=== PATIENT | male | born 1970 | race Caucasian/White ===

== ENCOUNTER 2021-06-03 08:07 | Inpatient (IN) | payer SELFPAY ==
[2021-06-03 08:45] LABS: Absolute Lymphocytes (CBC) 1.4 K/uL (0.7-4.9); Hematocrit 45.9 % (39.6-49.0); Lymphocytes % 9.7 % (15.3-44.8); MPV 7.6 fL (7.6-11.3)
[2021-06-03] MEDS ORDERED: MORPHINE 4 MG/ML SYR ONE ×3 (08:48→21:08)
[2021-06-03] MEDS ORDERED: ONDANSETRON 4 MG/2 ML VIAL ONE (08:48)
[2021-06-03 09:02] LABS: Albumin 3.6 g/dL (3.4-5.0); Bilirubin Direct 0.3 mg/dL (0-0.2); Potassium 3.6 mmol/L (3.5-5.1); Protein, Total 8.7 g/dL (6.4-8.2)
--- NOTE | 2021-06-03 09:34 | RAD REPORT ---
EXAM DESCRIPTION: CTAbdomen Pelvis W Contrast - 06/03/2021 9:26 am CLINICAL HISTORY: ABD PAIN COMPARISON: No comparisons TECHNIQUE: CT of the abdomen and pelvis was performed. All CT scans are performed using dose optimization technique as appropriate and may include automated exposure control or mA/KV adjustment according to patient size. FINDINGS: Lower chest: No acute abnormality. Liver: Benign-appearing low-density lesion along the inferior aspect of right hepatic lobe. Biliary: No biliary ductal dilatation. Stomach: No significant focal abnormality. Duodenum: No significant focal abnormality. Pancreas: No significant abnormality. Spleen: No significant abnormality. Adrenal: No suspicious lesions. Kidney/ureter: No hydronephrosis. No renal calculi. Retroperitoneum: No retroperitoneal adenopathy. Vascular: No aneurysm. Bowel: Sigmoid diverticulitis. A contained perforation is present. This measures approximately 2.5 cm . It is nearly exclusively air. No significant fluid component is identified. Normal appendix. No bow el obstruction. Peritoneum: No ascites or free air. Bladder: Grossly unremarkable. Reproductive: No adnexal masses. Bones: No acute fracture. Other: n/a IMPRESSION: Sigmoid diverticulitis with contained gas containing perforation. No significant fluid c omponent of the collection is identified and therefore it is non drainable at this time.
[2021-06-03] MEDS ORDERED: NA CHLORIDE 0.9% 100 ML IV ONE (10:21)
[2021-06-03] MEDS ORDERED: PIPERACIL/TAZO 3.375 GM VIAL IV ONE (10:22)
--- NOTE | 2021-06-03 10:26 | EDPHYS ---
Physician Documentation [facility] Name: Chase Mora Age: 51 yrs Sex: Male : 1970 Arrival Date: 06/03/2021 Time: 08:08 Bed 25 Private MD: ED Physician Osmany Sofia HPI: 06/03 08:18 This 51 yrs old Male presents to ER via Ambulatory with complaints of Abdominal Pain. [facility] 08:18 The patient presents with abdominal pain in the lower abdomen. Onset: The [facility] symptoms/episode began/occurred gradually. The symptoms do not radiate. Associated signs and symptoms: Pertinent negatives:. This is a 51 year old male with no chronic medical conditions that presents to the ED with complaints of left lower abdominal pain beginning 3 days ago with multiple episodes of diarrhea. Denies vomiting. Denies fever but states having some night sweats. . Historical: - Allergies: 08:39 Sulfa (Sulfonamide Antibiotics); eo2 - PMHx: 08:41 None; eo2 - PSHx: 08:41 hernia repair; eo2 - Immunization history:: Client reports having NOT received the Covid vaccine. - Social history:: Smoking status: Patient denies any tobacco usage or history of. Patient uses alcohol, occasionally. street drugs, marijuana, occasionally. ROS: 08:18 Constitutional: Positive for body aches, chills. jmm 08:18 Respiratory: Negative for cough. 08:18 Abdomen/GI: Positive for abdominal pain, diarrhea. 08:18 All other systems are negative. Exam: 08:18 Constitutional: This is a well developed, well nourished patient who is awake, alert, jmm and in no acute distress. Head/Face: atraumatic. Eyes: EOMI, no conjunctival erythema appreciated ENT: Moist Mucus Membranes Neck: Trachea midline, Supple Chest/axilla: Normal chest wall appearance and motion. Cardiovascular: Regular rate and rhythm. No edema appreciated Respiratory: Normal respirations, no respiratory distress appreciated 08:18 Back: Normal ROM Skin: General appearance color normal MS/ Extremity: Moves all extremities, no obvious deformities appreciated, no edema noted to the lower extremities Neuro: Awake and alert Psych: Behavior is normal, Mood is normal, Patient is cooperative and pleasant 08:18 Abdomen/GI: Inspection: abdomen appears normal, Bowel sounds: normal, Palpation: soft, mild abdominal tenderness, in the left lower quadrant. Vital Signs: 08:13 BP 143 / 86; Pulse 82; Resp 17; Temp 97.6; Pulse Ox 100% ; Weight 88.45 kg; Height 5 6 ft. 6 in. (167.64 cm); Pain 4/10; 08:41 BP 159 / 86; Pulse 85; Resp 15; Pulse Ox 97% on R/A; Pain 4/10; eo2 09:50 BP 135 / 81; Pulse 78; Resp 17; Pulse Ox 98% ; Pain 3/10; eo2 10:27 BP 125 / 82; Pulse 76; Resp 16; Pulse Ox 96% ; Pain 6/10; eo2 11:00 BP 138 / 86; Pulse 83; Resp 15; Pulse Ox 98% ; Pain 4/10; eo2 12:00 BP 136 / 81; Pulse 75; Resp 15; Pulse Ox 99% ; eo2 14:45 BP 135 / 75; Pulse 80; Resp 17; Temp 100.4; Pulse Ox 99% ; Pain 6/10; eo2 08:13 Body Mass Index 31.47 (88.45 kg, 167.64 cm) [facility] 14:45 Dr. Gonzales called to be made aware, VM left eo2 MDM: 08:18 Patient medically screened. [facility] 10:08 Data reviewed: vital signs, nurses notes. Counseling: I had a detailed discussion with [facility] the patient and/or guardian regarding:. Counseling: I had a detailed discussion with the patient and/or guardian regarding: the historical points, exam findings, and any diagnostic results supporting the discharge/admit diagnosis, lab results, radiology results. 10:24 ED course: I discussed the patient with Dr. Gonzales whom accepted the patient to his [facility] service. I discussed the patient with Dr. Balderas whom will consult on admission. . 06/03 08:36 Order name: Basic Metabolic Panel; Complete Time: 09:05 [facility] 06/03 08:36 Order name: CBC with Diff; Complete Time: 08:58 [facility] 06/03 08:36 Order name: Hepatic Function; Complete Time: 09:05 [facility] 06/03 08:36 Order name: Lipase; Complete Time: 09:05 [facility] 06/03 10:30 Order name: SARS-COV-2 RT PCR (Document "Date of Onset" if Symptomatic); Complete Time: iw 12:07 06/03 13:37 Order name: CBC with Automated Diff EDMS 06/03 08:42 Order name: CT Abd/Pelvis - IV Contrast Only; Complete Time: 09:35 [facility] 06/03 13:37 Order name: CBC with Automated Diff EDMS 06/03 13:37 Order name: Comprehensive Metabolic Panel EDMS 06/03 13:37 Order name: Comprehensive Metabolic Panel EDMS 06/03 13:37 Order name: Comprehensive Metabolic Panel EDMS 06/03 13:37 Order name: Comprehensive Metabolic Panel MS 06/03 08:36 Order name: IV Saline Lock; Complete Time: 08:37 [facility] 06/03 08:36 Order name: Labs collected and sent; Complete Time: 08:37 [facility] 06/03 13:37 Order name: NPO EDMS Administered Medications: 08:50 Drug: morphine 4 mg Route: IVP; Site: left antecubital; eo2 09:50 Follow up: Response: Pain is decreased eo2 08:50 Drug: Zofran (Ondansetron) 4 mg Route: IVP; Site: left antecubital; eo2 09:50 Follow up: Response: No adverse reaction eo2 10:27 Drug: morphine 4 mg Route: IVP; Site: left antecubital; eo2 11:27 Follow up: Response: No adverse reaction; Pain is decreased eo2 10:30 Drug: Zosyn (piperacillin-tazobactam) 3.375 grams Route: IVPB; Infused Over: 60 mins; eo2 Site: left antecubital; 11:30 Follow up: Response: No adverse reaction; IV Status: Completed infusion; IV Intake: eo2 100ml Disposition Summary: 06/03/21 10:26 Hospitalization Ordered Hospitalization Status: Inpatient Admission jose Provider: Lupis Gonzales Location: Telemetry/MedSurg (Inpatient) jmm Condition: Stable jmm Problem: new jmm Symptoms: have improved jmm Bed/Room Type: Standard [facility] Room Assignment: 427(06/03/21 14:18) bd Diagnosis - Acute Sigmoid Diverticulitis with perforation jmm Forms: - Medication Reconciliation Form jm - SBAR form [facility] Addendum: 06/06/2021 09:18 Co-signature as Attending Physician, Osmany Sofia MD I agree with the assessment and c carroll plan of care. Signatures: Dispatcher [employer] EDMandie Jensen Corey, MD MD cha Mickail, Joel, PA PA jmm Owoade, Eunice, ART RN eo2 Corrections: (The following items were deleted from the chart) 06/03 14:18 10:26 roxy rivas
--- NOTE | 2021-06-03 10:26 | ER ---
Nurse's Notes [facility] Name: Chase Mora Age: 51 yrs Sex: Male : 1970 Arrival Date: 06/03/2021 Time: 08:08 Bed 25 Private MD: Diagnosis: Acute Sigmoid Diverticulitis with perforation Presentation: 06/03 08:13 Chief complaint: Patient states: Left side abd pain x 3 days, minimal BM over the last jh6 3 days. Coronavirus screen: Client denies travel out of the [place] in the last 14 days. Ebola Screen: Patient denies exposure to infectious person. Patient denies travel to an Ebola-affected area in the 21 days before illness onset. Initial Sepsis Screen: Does the patient meet any 2 criteria? No. Patient's initial sepsis screen is negative. Does the patient have a suspected source of infection? No. Patient's initial sepsis screen is negative. Risk Assessment: Do you want to hurt yourself or someone else? Patient reports no desire to harm self or others. Onset of symptoms was May 31, 2021. 08:13 Method Of Arrival: Ambulatory [facility] 08:13 Acuity: OMID 3 6 Triage Assessment: 08:16 General: Appears in no apparent distress. Behavior is calm, cooperative. Pain: 6 Complains of pain in left upper quadrant and left lower quadrant. GI: Reports constipation, cramping. Historical: - Allergies: 08:39 Sulfa (Sulfonamide Antibiotics); eo2 - PMHx: 08:41 None; eo2 - PSHx: 08:41 hernia repair; eo2 - Immunization history:: Client reports having NOT received the Covid vaccine. - Social history:: Smoking status: Patient denies any tobacco usage or history of. Patient uses alcohol, occasionally. street drugs, marijuana, occasionally. Screenin:41 Abuse screen: Denies threats or abuse. Denies injuries from another. Nutritional eo2 screening: No deficits noted. Tuberculosis screening: No symptoms or risk factors identified. Fall Risk None identified. Assessment: 08:37 General: Appears in no apparent distress. comfortable, Behavior is calm. Pain: eo2 Complains of pain in abdomen and left lower quadrant and left upper quadrant. Neuro: Level of Consciousness is awake, alert, obeys commands, Oriented to person, place, time, situation, Denies dizziness, headache. Cardiovascular: Denies chest pain, shortness of breath. Respiratory: Airway is patent Trachea midline Respiratory effort is even, unlabored, Respiratory pattern is regular, symmetrical, Breath sounds are clear bilaterally. Denies shortness of breath labored breathing. GI: Bowel sounds present X 4 quads. Abdomen is tender to palpation in left lower quadrant and left upper quadrant. GI: Reports abd pain onset 3 days, associated with constipation/diarrhea, denies N/V, hx of hernia sx. : Denies burning with urination, urinary frequency. Vital Signs: 08:13 BP 143 / 86; Pulse 82; Resp 17; Temp 97.6; Pulse Ox 100% ; Weight 88.45 kg; Height 5 6 ft. 6 in. (167.64 cm); Pain 4/10; 08:41 BP 159 / 86; Pulse 85; Resp 15; Pulse Ox 97% on R/A; Pain 4/10; eo2 09:50 BP 135 / 81; Pulse 78; Resp 17; Pulse Ox 98% ; Pain 3/10; eo2 10:27 BP 125 / 82; Pulse 76; Resp 16; Pulse Ox 96% ; Pain 6/10; eo2 11:00 BP 138 / 86; Pulse 83; Resp 15; Pulse Ox 98% ; Pain 4/10; eo2 12:00 BP 136 / 81; Pulse 75; Resp 15; Pulse Ox 99% ; eo2 14:45 BP 135 / 75; Pulse 80; Resp 17; Temp 100.4; Pulse Ox 99% ; Pain 6/10; eo2 08:13 Body Mass Index 31.47 (88.45 kg, 167.64 cm) [facility] 14:45 Dr. Gonzales called to be made aware, VM left eo2 ED Course: 08:08 Patient arrived in ED. am2 08:11 Rasta Juárez PA is PHCP. [facility] 08:11 Osmany Sofia MD is Attending Physician. [facility] 08:16 Triage completed. jh6 08:30 Carolina Ocampo, ART is Primary Nurse. eo2 08:36 Inserted saline lock: 20 gauge in left antecubital area, using aseptic technique. Blood eo2 collected. 08:41 No provider procedures requiring assistance completed. eo2 08:41 Patient has correct armband on for positive identification. Pulse ox on. NIBP on. Door eo2 closed. Noise minimized. Warm blanket given. 08:43 Arm band placed on. eo2 09:26 CT Abd/Pelvis - IV Contrast Only In Process Unspecified. EDMS 10:25 Lupis Gonzales MD is Hospitalizing Provider. [facility] 15:02 Patient admitted, IV remains in place. eo2 15:02 Report given to Mónica CORDOVA. eo2 Administered Medications: 08:50 Drug: morphine 4 mg Route: IVP; Site: left antecubital; eo2 09:50 Follow up: Response: Pain is decreased eo2 08:50 Drug: Zofran (Ondansetron) 4 mg Route: IVP; Site: left antecubital; eo2 09:50 Follow up: Response: No adverse reaction eo2 10:27 Drug: morphine 4 mg Route: IVP; Site: left antecubital; eo2 11:27 Follow up: Response: No adverse reaction; Pain is decreased eo2 10:30 Drug: Zosyn (piperacillin-tazobactam) 3.375 grams Route: IVPB; Infused Over: 60 mins; eo2 Site: left antecubital; 11:30 Follow up: Response: No adverse reaction; IV Status: Completed infusion; IV Intake: eo2 100ml Intake: 11:30 IV: 100ml; Total: 100ml. eo2 Outcome: 10:26 Decision to Hospitalize by Provider. [facility] 15:02 Admitted to Med/surg accompanied by tech, via wheelchair. eo2 15:02 Condition: stable 15:02 Instructed on the need for admit. 15:16 Patient left the ED. eo2 Signatures: Dispatcher [employer] EDMS Rasta Juárez PA PA Lety Lora am2 Alejandra Carreon RN RN jh6 Carolina Ocampo RN RN eo2 Corrections: (The following items were deleted from the chart) 08:54 08:41 BP 159 / 86; Pulse 85bpm; Resp 15bpm; Pulse Ox 97% RA; eo2 eo2 12:15 11:00 BP 138 / 86; Pulse 83bpm; Resp 15bpm; Pulse Ox 98%; eo2 eo2
[2021-06-03] MEDS ORDERED: MORPHINE 2 MG/ML SYR IV PRN (13:34)
[2021-06-03] MEDS ORDERED: ALBUTEROL 2.5 MG/3 ML NEB SOL NEB PRN (13:34)
[2021-06-03] MEDS ORDERED: ONDANSETRON 4 MG/2 ML VIAL IV PRN (13:34)
--- NOTE | 2021-06-03 13:34 | P.HP ---
Certification for Inpatient With expected LOS: >2 Midnights Patient will require the following post-hospital care: None Practitioner: I am a practitioner with admitting privileges, knowledge of patient current condition, hospital course, and medical plan of care. Services: Services provided to patient in accordance with Admission requirements found in Title 42 Section 412.3 of the Code of Federal Regulations Patient History Date of Service: 06/03/21 Reason for admission: Abdominal pain History of Present Illness: 51-year-old male with no past medical history presented because of abdominal pain, lower abdomen more in the suprapubic area radiating to both flanks, since the last 3 days, intermittent with more colicky since the last 2 days. He denies any associated vomiting but admits to some nausea. He denies any fever or chills. He denies any associated diarrhea or constipation. He states his last bowel movement was 2 days ago. On arrival in the ED he had a CT of the abdomen with finding-IMPRESSION: Sigmoid diverticulitis with contained gas containing perforation. No significant fluid component of the collection is identified and therefore it is non drainable at this time. He has been admitted for perforated sigmoid diverticulitis. He states he had a colonoscopy about 10 years ago but is not sure for what reason. He denies any family history of colon cancer. - Past Medical/Surgical History Has patient received pneumonia vaccine in the past: No Diabetic: No Past Medical History: Patient denies medical history Past Surgical History: Patient denies surgical history - Social History Smoking Status: Never smoker Smoking therapy provided: No Patient receptive to therapy: No Alcohol use: No CD- Drugs: No Caffeine use: No Place of Residence: Home Review of Systems 10-point ROS is otherwise unremarkable Physical Examination - Physical Exam General: Alert, In no apparent distress, Oriented x3 HEENT: Atraumatic, Normocephalic, PERRLA Neck: Supple, 2+ carotid pulse no bruit, JVD not distended Respiratory: Clear to auscultation bilaterally, Normal air movement Cardiovascular: Normal pulses, Regular rate/rhythm, Normal S1 S2 Gastrointestinal: Normal bowel sounds, Soft and benign, No ascites, No masses, Tenderness (lower abdomen) Musculoskeletal: No clubbing, No swelling Integumentary: No rashes, No breakdown, No significant lesion Neurological: Normal speech, Normal strength at 5/5 x4 extr, Normal tone External genitalia: No edema, No lesions - Studies Laboratory Data (last 24 hrs) 06/03/21 08:35: WBC 14.30 H, Hgb 15.8, Hct 45.9, Plt Count 340 06/03/21 08:35: Sodium 136, Potassium 3.6, BUN 7, Creatinine 1.01, Glucose 114 H, Total Bilirubin 1.0, AST 26, ALT 59, Alkaline Phosphatase 63, Lipase 58 L Assessment and Plan Discharge Plan: Home Plan to discharge in: Greater than 2 days - Advance Directives Does patient have a Living Will: No Does patient have a Durable POA for Healthcare: No - Code Status/Comfort Care Code Status Assessed: Yes Code Status: Full Code Physician Review: Patient Assessed, Agree with Above Assessment and Plan Physician Review Additional Text: Impression Sigmoid diverticulitis Presumed history of diverticulosis Plan Since contained air-containing perforation, will manage conservatively General surgery evaluation to help us out with patient Start empirical antibiotics with Zosyn and Flagyl Obtain blood culture x2 Start gentle IV fluid Placed on n.p.o. status Pain medicine with antiemetics as needed Subcutaneous heparin for DVT prophylaxis Follow clinical symptoms as well as abdominal pain daily Critical Care: Yes Time Spent Managing Pts Care (In Minutes): 65
[2021-06-03] MEDS ORDERED: HYDRALAZINE HCL 20 MG/ML VIAL IV PRN (13:35)
[2021-06-03] MEDS ORDERED: MORPHINE 2 MG/ML SYR ONE (14:37)
[2021-06-03] MEDS ORDERED: D5 0.9 NS 1,000 ML IV ONE (14:38)
[2021-06-03] MEDS: D5 0.9 NS 1,000 ML IV SCH (14:47)
[2021-06-03] MEDS: ACETAMINOPHEN 500 MG TAB PO PRN (16:21)
[2021-06-03] MEDS: METRONIDAZOLE 500mg IVPB 500 MG/100 ML BAG IV SCH (16:22)
[2021-06-03] MEDS: PIPER TAZO 3.375 GM in NA CHLORIDE 0.9% 100 ML IV SCH (16:24)
[2021-06-03] MEDS: HEPARIN 5000 UNIT/ML 1 ML VIAL SQ SCH (16:28)
--- NOTE | 2021-06-03 22:26 | CON ---
Date of Consultation: 06/03/2021 Reason For Consultation: Abdominal pain. History Of Present Illness: The patient is a 51-year-old gentleman who comes to emergency room with 3-day history of left middle and left lower quadrant abdominal pain. He denies any nausea or vomitin g. He does not have any diarrhea. He does have constipation. No bright red blood per rectum. No p revious history of diverticulitis. He did have a colonoscopy approximately 10 years ago, which was n egative and family history is negative for any colorectal malignancy. Review of Systems: Otherwise unremarkable. Past Medical History: Negative. Past Surgical History: Significant for a left inguinal hernia repair. Allergies: INCLUDE BACTRIM AND SULFA. Social History: The patient does not smoke. Drinks occasionally. Family History: Noncontributory. Physical Examination: Vital Signs: Stable. His temperature is 100.4. General: He is awake, alert, and oriented x3. Head And Neck: Cranial nerves 2 through 12 are grossly within normal limits. No neck masses. No JV D. Throat clear. Neck: Supple. Chest: Clear. Heart: S1, S2. Abdomen: Soft, nondistended. Hypoactive bowel sounds. Left lower quadrant tenderness with rebound. No rigidity or guarding. Extremities: Adequately perfused. Nontender. Neuro: Nonfocal. Laboratory Data: White count is 14.3 with a left shift. Chemistry reviewed and essentially unremark able. CT of the abdomen and pelvis shows sigmoid diverticulitis containing perforation. No signific ant fluid component of the collection. No free air. Assessment: Acute sigmoid diverticulitis with microperforation. Recommendations: N.p.o., IV fluids, IV antibiotics. Should he improve medically then he can be adva nced to oral antibiotics and discharged home. He needs to follow up with the GI service in 4-6 weeks for colonoscopy following which the patient may benefit from elective sigmoid resection. Plan of ca re discussed in detail with the patient. We will follow the patient while in the hospital. Should h e worsen, obviously he would need surgical intervention sooner. /MODL Voice ID: [id number] Report ID: [id number]
[2021-06-04] MEDS ORDERED: MORPHINE 4 MG/ML SYR ONE ×2 (01:03→06:09)
[2021-06-04] MEDS: HEPARIN 5000 UNIT/ML 1 ML VIAL SQ SCH ×3 (01:07→17:50)
[2021-06-04] MEDS: METRONIDAZOLE 500mg IVPB 500 MG/100 ML BAG IV SCH ×3 (01:07→16:57)
[2021-06-04] MEDS: PIPER TAZO 3.375 GM in NA CHLORIDE 0.9% 100 ML IV SCH ×2 (01:15→07:36)
[2021-06-04 04:00] LABS: Absolute Lymphocytes (CBC) 1.6 K/uL (0.7-4.9); Hematocrit 42.5 % (39.6-49.0); Lymphocytes % 12.7 % (15.3-44.8); MPV 8.1 fL (7.6-11.3); RBC Red Blood Cell Count 4.67 M/uL (4.33-5.43)
[2021-06-04 04:25] LABS: Bilirubin Total 0.7 mg/dL (0.2-1.0); Potassium 3.7 mmol/L (3.5-5.1); Protein, Total 7.5 g/dL (6.4-8.2)
[2021-06-04] MEDS: MORPHINE 4 MG/ML SYR IV PRN ×3 (12:35→21:33)
[2021-06-04] MEDS: D5 0.9 NS 1,000 ML IV SCH ×3 (12:35→20:00)
--- NOTE | 2021-06-04 13:47 | P.PN ---
Subjective Date of Service: 06/04/21 Chief Complaint: Abdominal pain Subjective: No new changes (States abdominal pain slightly better Able to tolerate small sips of water today Worried about constipation) Physical Examination - Vital Signs Temperature: 99.0 F Blood Pressure: 135/69 Pulse: 77 Respirations: 16 Pulse Ox (%): 97 - Physical Exam General: Alert, In no apparent distress, Oriented x3 HEENT: Atraumatic, Normocephalic, PERRLA Neck: Supple, 2+ carotid pulse no bruit, JVD not distended Respiratory: Clear to auscultation bilaterally, Normal air movement Cardiovascular: No edema, Normal pulses, Regular rate/rhythm, Normal S1 S2 Gastrointestinal: Normal bowel sounds, Soft and benign, Non-distended, No rebound, Tenderness (over lower abdomen) Musculoskeletal: No clubbing, No swelling Integumentary: No rashes, No breakdown, No significant lesion Neurological: Normal speech, Normal strength at 5/5 x4 extr, Sensation intact, Cranial nerves 3-12 intact Assessment And Plan Physician Review: Patient Assessed, Agree with Above Assessment and Plan Physician Review Additional Text: Impression Perforated sigmoid diverticulitis Presumed history of diverticulosis Plan Slightly improving, white cell count trending down marginally Continue IV antibioticsswitch Zosyn to Levaquin, continue IV Flagyl General surgeryDr. Balderas discussed with, plan for clear liquid diet today and advance as tolerated We will add MiraLAX for bowel regimen Follow pending blood culture continue Pain medicine with antiemetics as needed Subcutaneous heparin for DVT prophylaxis Dispositionpossible home in 1 to 2 days
[2021-06-04] MEDS ORDERED: POLYETHYL GLY 3350 17 GM/DOSE PO PRN (13:48)
[2021-06-04] MEDS: Levofloxacin 750mg IV 750 MG/150 ML BAG IV SCH (14:50)
[2021-06-04] MEDS: ACETAMINOPHEN 500 MG TAB PO PRN (17:03)
--- NOTE | 2021-06-04 19:22 | PN ---
Date of Progress Note: 06/04/2021 Subjective: Patient is awake, alert, complaining of little less pain. No nausea or vomiting. He carroll s had bowel movement. Passing gas. His bowels are stable. Objective: Vital Signs: His temperature is 99.0, his white count is 12.9, which is improved and his left shift has normalized. Abdomen: Soft, forming machine tender, with minimal rebound. No rigidity or guarding. Assessment: Acute sigmoid diverticulitis. Recommendations: Continue IV antibiotics. We will begin him on clear liquids and continue to monito r his CBC and serial abdominal exam. No need for any surgical intervention at this time. Should the patient improve then he will need to be on oral antibiotics for a couple of weeks. Cipro and Flagyl should suffice, oral Levaquin and Flagyl, and the GI followup in 4 to 6 weeks for a colonoscopy and possible segmental colectomy based on the findings. Plan of care discussed with the primary physicia n, as well as, the patient. /MODL Voice ID: [id number] Report ID: [id number]
[2021-06-05] MEDS: MORPHINE 4 MG/ML SYR IV PRN ×3 (01:20→09:42)
[2021-06-05] MEDS: METRONIDAZOLE 500mg IVPB 500 MG/100 ML BAG IV SCH ×3 (01:20→16:48)
[2021-06-05] MEDS: HEPARIN 5000 UNIT/ML 1 ML VIAL SQ SCH ×3 (01:20→16:49)
[2021-06-05 03:54] LABS: Absolute Lymphocytes (CBC) 1.5 K/uL (0.7-4.9); Hematocrit 39.4 % (39.6-49.0); MPV 7.9 fL (7.6-11.3); RBC Red Blood Cell Count 4.46 M/uL (4.33-5.43)
[2021-06-05 04:22] LABS: ALT/SGPT 32 U/L (12-78); AST/SGOT 11 U/L (15-37); Albumin 2.7 g/dL (3.4-5.0); Alkaline Phosphatase 52 U/L (45-117); BUN Blood Urea Nitrogen 6 mg/dL (7-18); Bicarbonate 25 mmol/L (21-32); Bilirubin Total 0.5 mg/dL (0.2-1.0); Glucose Level 123 mg/dL (74-106); Potassium 3.4 mmol/L (3.5-5.1); Protein, Total 7.1 g/dL (6.4-8.2); Sodium Level 137 mmol/L (136-145)
[2021-06-05] MEDS: D5 0.9 NS 1,000 ML IV SCH ×2 (09:06→16:45)
--- NOTE | 2021-06-05 11:08 | PN ---
Date of Progress Note: 06/05/2021 Subjective: The patient is awake, alert. Feels a little better. Vitals are stable, afebrile. Whit e count is still slightly elevated. Objective: On physical exam, there is still tenderness in the left lower quadrant with minimal rebou nd. No rigidity or guarding. Assessment: Acute sigmoid diverticulitis. Recommendations: The patient can be slowly advanced to full liquids later today. I would keep him i n another day for IV antibiotics because he still has leukocytosis and significant tenderness. He do es not have peritonitis and hopefully in the next 24-48 hours, the patient will be ready for discharg e on oral antibiotics. The patient does not need a dietitian consultation for education of acute div erticulitis. /MODL Voice ID: [id number] Report ID: [id number]
[2021-06-05] MEDS: ACETAMINOPHEN 500 MG TAB PO PRN (14:41)
[2021-06-05] MEDS: Levofloxacin 750mg IV 750 MG/150 ML BAG IV SCH (14:41)
--- NOTE | 2021-06-05 16:27 | P.PN ---
Subjective Date of Service: 06/05/21 Chief Complaint: Abdominal pain Subjective: Improving (Patient is requesting dietary consult) Physical Examination - Vital Signs Temperature: 99.2 F Blood Pressure: 119/63 Pulse: 71 Respirations: 16 Pulse Ox (%): 96 - Physical Exam General: In no apparent distress, Cooperative HEENT: Atraumatic, Normocephalic Respiratory: Clear to auscultation bilaterally, Normal air movement Cardiovascular: No edema, Normal pulses, Regular rate/rhythm, Normal S1 S2 Gastrointestinal: Soft and benign, Tenderness (Left sided abdominal tenderness) Neurological: Normal speech, Normal affect Assessment And Plan - Current Problems (Diagnosis) (1) Sigmoid diverticulitis Current Visit: Yes Status: Acute Physician Review: Patient Assessed, Agree with Above Assessment and Plan Physician Review Additional Text: 06/05/21 16:26 Assessment Patient is a 51 year old male admitted with sigmoid diverticultis. He is doing well on antibiotics and IVF. WBC is trending down plan: He will need one more day of abx Nutrition consulted Continue symptomatic control with pain regimen and anti-emetics Heparin subc for DVT ppx DC tomorrow
[2021-06-05 17:52] VITALS: BMI 31.3
[2021-06-06] MEDS: HEPARIN 5000 UNIT/ML 1 ML VIAL SQ SCH ×3 (00:01→17:13)
[2021-06-06 06:37] LABS: Absolute Lymphocytes (CBC) 1.7 K/uL (0.7-4.9); Hematocrit 40.7 % (39.6-49.0); Lymphocytes % 13.1 % (15.3-44.8); MPV 7.7 fL (7.6-11.3); RBC Red Blood Cell Count 4.63 M/uL (4.33-5.43)
[2021-06-06] MEDS: D5 0.9 NS 1,000 ML IV SCH ×3 (06:42→23:59)
[2021-06-06 06:47] LABS: ALT/SGPT 34 U/L (12-78); AST/SGOT 19 U/L (15-37); Alkaline Phosphatase 59 U/L (45-117); BUN Blood Urea Nitrogen 5 mg/dL (7-18); Bicarbonate 24 mmol/L (21-32); Bilirubin Total 0.4 mg/dL (0.2-1.0); Glucose Level 129 mg/dL (74-106); Potassium 3.6 mmol/L (3.5-5.1); Protein, Total 7.9 g/dL (6.4-8.2); Sodium Level 139 mmol/L (136-145)
--- NOTE | 2021-06-06 09:30 | PN ---
Date of Progress Note: 06/06/2021 Subjective: The patient states that he had a rough night, having to pass a lot of gas and discomfort , but no real pain. His white count is 12.9 with a left shift. His chemistry reviewed. Objective: Vital Signs: Stable. He is afebrile. Abdomen: Less tender in the left lower quadrant. No rebound. No rigidity. No guarding. Assessment: Acute sigmoid diverticulitis. Recommendations: The patient is still not quite ready to go home yet. I think we should give him an other day of IV antibiotics and consider repeating a CT of the abdomen and pelvis to make sure he has not developed an abscess. As his white count is still elevated, I will discuss this with Dr. Mario sanchez after he evaluates the patient this morning and then we will make further recommendations. Please note, the patient will need at least 2 weeks of oral antibiotics after discharge and colonoscopy in 4 -6 weeks. REJI/SHYANN Voice ID: [id number] Report ID: [id number]
[2021-06-06] MEDS: METRONIDAZOLE 500mg IVPB 500 MG/100 ML BAG IV SCH ×3 (09:34→17:11)
[2021-06-06] MEDS: Levofloxacin 750mg IV 750 MG/150 ML BAG IV SCH (13:46)
--- NOTE | 2021-06-06 15:27 | P.PN ---
Subjective Date of Service: 06/06/21 Chief Complaint: Abdominal pain Subjective: Improving Physical Examination - Vital Signs Temperature: 98.6 F Blood Pressure: 122/72 Pulse: 18 Respirations: 18 Pulse Ox (%): 98 - Physical Exam General: In no apparent distress, Cooperative HEENT: Atraumatic, Normocephalic Neurological: Normal gait, Normal speech, Normal affect Assessment And Plan - Current Problems (Diagnosis) (1) Sigmoid diverticulitis Current Visit: Yes Status: Acute Physician Review: Patient Assessed, Agree with Above Assessment and Plan Physician Review Additional Text: 06/05/21 16:26 Assessment Patient is a 51 year old male admitted with sigmoid diverticultis. He is doing well on antibiotics and IVF. WBC is trending down. He continues to have some abdominal discomfort, however. plan: He will need one more day of abx Repeat CBC tomorrow We will get a repeat CT abdomen and pelvis to rule out abscess Case discussed with Dr. Balderas Continue symptomatic control with pain regimen and anti-emetics Heparin subc for DVT ppx 06/06/21 15:27
--- NOTE | 2021-06-06 17:14 | RAD REPORT ---
EXAM DESCRIPTION: CT - Abdomen Pelvis W Contrast - 06/06/2021 3:50 pm CLINICAL HISTORY: Rule out abscess COMPARISON: Abdomen Pelvis W Contrast dated 06/03/2021 TECHNIQUE: Biphasic, helical CT imaging of the abdomen and pelvis was performed following 100 ml non -ionic IV contrast. Oral contrast was given. All CT scans are performed using dose optimization technique as appropriate and may include automated exposure control or mA/KV adjustment according to patient size. FINDINGS: No suspicious findings in the lung bases. The liver, spleen, and pancreas show no suspicious findings. Liver attenuation is borderline fatty in filtrated. Gallbladder and biliary tree are also without suspicious finding. Symmetric renal function is seen with no hydronephrosis or suspicious renal mass. No pyelonephritis o r acute parenchymal process. Approximately 13 millimeter lobulated focus is present along the posteri or floor the bladder. This may be part of a prominent trigone. Prostate gland is not enlarged. The po ssibility of a small bladder mass cannot be excluded. No adrenal abnormalities. Stomach and small bowel show no suspicious findings. No appendicitis. From cecum to descending colon there is no acute large bowel finding. Proximal sigmoid shows circumferential wall thickening. There is diverticulosis present. Along the deep or posterior wall of the involve proximal sigmoid colon the re is a 4 x 3 centimeter extraluminal air and fluid collection. No thickened rim or rind identified a t this time. This has enlarged slightly from June 03 imaging. No other site of extraluminal air o r fluid. No distant free air. No mass or bulky lymphadenopathy. Fat extends into the left inguinal c anal. Very small periumbilical fat only hernia present. No suspicious bony findings. IMPRESSION: A 4 x 3 centimeter diverticular abscess has formed in the fatty tissues along the deep o r posterior wall of the proximal sigmoid colon. This is enlargement of the finding seen on the imaging. No distant free air or other complicating factor.
[2021-06-07] MEDS: HEPARIN 5000 UNIT/ML 1 ML VIAL SQ SCH ×3 (00:02→16:25)
[2021-06-07 04:00] LABS: Absolute Lymphocytes (CBC) 1.8 K/uL (0.7-4.9); Hematocrit 40.8 % (39.6-49.0); Lymphocytes % 15.2 % (15.3-44.8); MPV 7.8 fL (7.6-11.3); RBC Red Blood Cell Count 4.59 M/uL (4.33-5.43)
[2021-06-07] MEDS: METRONIDAZOLE 500mg IVPB 500 MG/100 ML BAG IV SCH ×3 (08:36→16:24)
[2021-06-07] MEDS: D5 0.9 NS 1,000 ML IV SCH ×2 (08:38→18:00)
[2021-06-07] MEDS ORDERED: NA CHLORIDE 0.9% 500 ML ONE (08:55)
[2021-06-07] MEDS ORDERED: MIDAZOLAM HCL 2 MG/2 ML INJ ONE (08:56)
[2021-06-07] MEDS ORDERED: NALOXONE 0.4 MG/ML VIAL ONE (08:57)
[2021-06-07] MEDS ORDERED: FENTANYL CITR 100 MCG/2 ML ONE (08:57)
--- NOTE | 2021-06-07 09:36 | PN ---
Date of Progress Note: 06/06/2021 Subjective: The patient had a CAT scan yesterday with a new finding, which is 3 x 4 cm diverticular abscess. Case was discussed with , and a percutaneous drainage was reasonable. The patient is still with a little bit of discomfort in the left lower quadrant. No nausea or vomiting. His vitals are stable, afebrile. White count is 12,000. Abdomen he has tenderness in the left lower quadrant. Assessment: Acute sigmoid diverticulitis complicated by abscess. Recommendations: We will make the patient n.p.o., proceeding with a CT-guided percutaneous drainage. The patient was explained the risks and plan of care in detail. REJI/SHYANN Voice ID: [id number] Report ID: [id number] [facility]ALON
--- NOTE | 2021-06-07 12:44 | RAD REPORT ---
EXAM DESCRIPTION: CT - Perc Abd Abscess Drainage - 06/07/2021 10:58 am CLINICAL HISTORY: CT guided drainage of diverticular abscess COMPARISON: Abdomen Pelvis W Contrast dated 06/06/2021; Abdomen Pelvis W Contrast dated 06/03/2021 FINDINGS: Preoperative diagnosis: Diverticular abscess Post operative diagnosis: Same Conscious Sedation: Performed with Versed and fentanyl. 30 minutes of [id number] time Patient was continuously monitored by nursing staff. Contrast used: NONE Estimated blood loss: less than 5 mL Specimens: Approximately 10 cc of purulent fluid. The patient was placed supine on the table and the left lower quadrant area was prepped and draped in the usual sterile fashion. 1% lidocaine was infiltrated into the subcutaneous tissues for local anes thesia. Under computed tomographic guidance, a 17 gauge introducer was advanced into the collection. Upon reaching the collection, a guidewire was in place. Sequential fascial dilatation was then perfor med. A 10.2 Fr drainage catheter was then placed over the wire and CT used to confirm positioning. Postprocedure imaging demonstrated no complications and near complete resolution of the collection. T he patient tolerated the procedure without immediate complication and transferred to the floor in sta ble condition. IMPRESSION: 1. Technically successful CT-guided abscess drainage of an intraperitoneal fluid collect ion in the left lower quadrant. 2. Conscious sedation was utilized. 3. No immediate complications. All CT scans are performed using dose optimization technique as appropriate and may include automated exposure control or mA/KV adjustment according to patient size.
[2021-06-07] MEDS: Levofloxacin 750mg IV 750 MG/150 ML BAG IV SCH (13:09)
--- NOTE | 2021-06-07 15:46 | P.PN ---
Subjective Date of Service: 06/07/21 Chief Complaint: Abdominal pain Subjective: Improving (S/P IR drainage of diverticular abscess) Physical Examination - Vital Signs Temperature: 97.5 F Blood Pressure: 139/65 Pulse: 65 Respirations: 18 Pulse Ox (%): 99 - Physical Exam General: In no apparent distress, Cooperative HEENT: Atraumatic, Normocephalic Cardiovascular: No edema Gastrointestinal: Soft and benign, Non-distended, Other (Drain in place) Musculoskeletal: No clubbing, No swelling, No contractures, No erythema Neurological: Normal speech, Normal affect Assessment And Plan - Current Problems (Diagnosis) (1) Sigmoid diverticulitis Current Visit: Yes Status: Acute Physician Review: Patient Assessed, Agree with Above Assessment and Plan Physician Review Additional Text: 06/05/21 16:26 Assessment Patient is a 51 year old male admitted with sigmoid diverticulitis which unfortunately progressed into diverticular abscess despite antibiotics. Today is POD#0 S/P IR guided abscess drainage. He is doing well on antibiotics and IVF. plan: Monitor drain x 2 days. Remove if output < 30 cc Continue antibiotics and pain regimen He will need a repeat CT A/P in 6 weeks and follow up with surgery Repeat CBC tomorrow Heparin subc for DVT ppx 06/06/21 15:27
[2021-06-07] MEDS: ACETAMINOPHEN 500 MG TAB PO PRN (16:28)
[2021-06-08] MEDS: HEPARIN 5000 UNIT/ML 1 ML VIAL SQ SCH ×2 (00:11→08:43)
[2021-06-08] MEDS: METRONIDAZOLE 500mg IVPB 500 MG/100 ML BAG IV SCH ×3 (00:11→16:44)
[2021-06-08] MEDS: D5 0.9 NS 1,000 ML IV SCH ×3 (00:12→14:00)
[2021-06-08] MEDS: ACETAMINOPHEN 500 MG TAB PO PRN (04:36)
[2021-06-08 05:56] LABS: Absolute Lymphocytes (CBC) 1.9 K/uL (0.7-4.9); Hematocrit 43.2 % (39.6-49.0); Lymphocytes % 24.1 % (15.3-44.8); MPV 9.1 fL (7.6-11.3); RBC Red Blood Cell Count 4.84 M/uL (4.33-5.43)
[2021-06-08 09:33] VITALS: O2SAT 98
--- NOTE | 2021-06-08 12:27 | P.PN ---
Subjective Date of Service: 06/08/21 Chief Complaint: Abdominal pain Subjective: Improving (POD#1 S/P IR drainage of diverticular abscess. Drain~ 5cc output. WBC back to WNL) Physical Examination - Vital Signs Temperature: 98.3 F Blood Pressure: 127/79 Pulse: 79 Respirations: 18 Pulse Ox (%): 96 - Physical Exam General: Alert, In no apparent distress, Cooperative HEENT: Atraumatic, Normocephalic Respiratory: Clear to auscultation bilaterally, Normal air movement Cardiovascular: Normal pulses, Regular rate/rhythm, Normal S1 S2 Gastrointestinal: Soft and benign, Non-distended Musculoskeletal: No clubbing, No swelling, No contractures, No erythema Neurological: Normal speech, Normal affect Assessment And Plan - Current Problems (Diagnosis) (1) Sigmoid diverticulitis Current Visit: Yes Status: Acute Physician Review: Patient Assessed, Agree with Above Assessment and Plan Physician Review Additional Text: 06/05/21 16:26 Assessment Patient is a 51 year old male admitted with sigmoid diverticulitis which unfortunately progressed into diverticular abscess despite antibiotics. Today is POD#0 S/P IR guided abscess drainage. He is doing well on antibiotics and IVF. plan: Monitor drain x 1 more day. Remove if output < 30 cc Continue antibiotics and pain regimen He will need a repeat CT A/P in 6 weeks and follow up with surgery Patient can be discharged tomorrow Heparin subc for DVT ppx
[2021-06-08] MEDS: Levofloxacin 750mg IV 750 MG/150 ML BAG IV SCH (13:59)
--- NOTE | 2021-06-08 15:00 | PN ---
Date of Progress Note: 06/08/2021 Subjective: Patient is awake, alert. Doing better. Tolerating his liquids. He had a CT-guided nia inage. Pus was evacuated. Cultures were sent. Gram stain revealed gram positive, identification is pending as well as sensitivity. Vitals are stable. He is afebrile. His white count is normal. Th ere is no left shift. Abdomen is less tender. No peritonitis. Assessment: Acute sigmoid diverticulitis with abscess, status post percutaneous drainage. Recommendations: We will continue to monitor the drain output for the next 24 to 48 hours. If it is insignificant less than 30 cc/24 hour, then patient probably can go home on oral antibiotics with a followup CT as an outpatient as well as a colonoscopy as surgical intervention in the interval. REJI/SHYANN Voice ID: [id number] Report ID: [id number]
[2021-06-09] MEDS: METRONIDAZOLE 500mg IVPB 500 MG/100 ML BAG IV SCH ×2 (01:55→09:57)
[2021-06-09] MEDS: D5 0.9 NS 1,000 ML IV SCH ×2 (04:10→09:58)
[2021-06-09] MEDS ORDERED: ENOXAPARIN 30 MG/0.3 ML SQ SCH (09:00)
[2021-06-09] MEDS ORDERED: ENOXAPARIN 40 MG/0.4 ML SQ SCH (09:00)
--- NOTE | 2021-06-09 12:01 | P.DS ---
Admission Date: 06/03/21 Discharge Date: 06/09/21 Disposition: ROUTINE DISCHARGE Discharge Condition: FAIR Reason for Admission: Abdominal pain - Problems (1) Sigmoid diverticulitis Current Visit: Yes Status: Acute Hospital Course: Patient is a 51 year old male admitted with sigmoid diverticulitis which unfortunately progressed into diverticular abscess despite antibiotics. Today is POD#0 S/P IR guided abscess drainage. He did well on antibiotics and IVF. His drain was removed today. He can be discharged and follow up with Dr Balderas. He will need a repeat CT A/P in 6 weeks. Vital Signs/Physical Exam: Temp Pulse Resp BP Pulse Ox 97.4 F 75 18 152/96 H 98 06/09/21 08:00 06/09/21 08:00 06/09/21 08:00 06/09/21 08:00 06/09/21 08:00 General: Alert, In no apparent distress HEENT: Atraumatic, Normocephalic Respiratory: Other (Breathing unlaboured on room air) Musculoskeletal: No clubbing, No swelling, No contractures, No erythema Neurological: Normal speech, Normal affect Laboratory Data at Discharge: WBC 7.70 K/uL (4.3-10.9) D 06/08/21 04:02 Hgb 15.0 g/dL (13.6-17.9) 06/08/21 04:02 Hct 43.2 % (39.6-49.0) 06/08/21 04:02 Plt Count 343 K/uL (152-406) 06/08/21 04:02 Sodium 139 mmol/L (136-145) 06/06/21 06:19 Potassium 3.6 mmol/L (3.5-5.1) 06/06/21 06:19 BUN 5 mg/dL (7-18) L 06/06/21 06:19 Creatinine 0.88 mg/dL (0.55-1.3) 06/06/21 06:19 Glucose 129 mg/dL (74-106) H 06/06/21 06:19 Total Bilirubin 0.4 mg/dL (0.2-1.0) 06/06/21 06:19 AST 19 U/L (15-37) 06/06/21 06:19 ALT 34 U/L (12-78) 06/06/21 06:19 Alkaline Phosphatase 59 U/L (45-117) 06/06/21 06:19 Lipase 58 U/L (73-393) L 06/03/21 08:35 Home Medications: levoFLOXacin [Levaquin*] 750 mg PO DAILY #7 tab 06/09/21 metroNIDAZOLE [Flagyl] 500 mg PO Q8H #21 tablet 06/09/21 New Medications: metroNIDAZOLE [Flagyl] 500 mg PO Q8H #21 tablet levoFLOXacin [Levaquin*] 750 mg PO DAILY #7 tab Followup: NONE,NONE [Primary Care Provider] - Rogerio Balderas MD [ACTIVE - CAN ADMIT] - 07/22/21
[2021-06-09 13:11] VITALS: BP 123/81; TEMP 97
--- NOTE | 2021-06-09 15:06 | PN ---
Date of Progress Note: 06/09/2021 Subjective: The patient is awake, alert. No complaints. Vitals stable, afebrile. Minimal output f rom the drain. Objective: Vital Signs: Stable and afebrile. Abdomen: Benign. Procedure: Under clean conditions, the string in the catheter cut and then the drainage catheter rem damián without difficulty. Sterile dressing applied. The patient tolerated the procedure in stable co ndition. Assessment: Acute sigmoid diverticulitis with abscess, status post percutaneous drainage. Recommendation: As the patient is clinically well, white count is normal and he is afebrile, the pat ient can be discharged home on Cipro and Flagyl, and follow up with me in 2 weeks. He will need a re peat CT in 4-6 weeks followed by a colonoscopy and then probable colorectal referral for a segmental colon resection. Plan of care and discharge instructions discussed with the patient in detail. REJI/MODL Voice ID: [id number] Report ID: [id number]
== END 2021-06-09 14:26 | disposition home or self-care (01) | DRG 392 ==
LOC: ER 08:07 → ERHOLD 13:34 → 4TH 15:08 → 2ND 06-08 17:35
PROVIDERS: ADMIT Internal Medicine; ATTEND Internal Medicine
PROC: 0W9G3ZZ Drainage of Peritoneal Cavity, Percutaneous Approach (ICD-10-PCS; principal; 2021-06-07)
DX: K57.20 Diverticulitis of large intestine with perforation and abscess without bleeding (principal); Z88.2 Allergy status to sulfonamides; Z20.822 Contact with and (suspected) exposure to COVID-19
CPT/HCPCS: 36415; 49021; 74177; 80048; 80053; 80076; 83690; 85025; 87070; 87077; 87186; 94760; 96365; 96375; 99285; J1644; J1650; J2250; J2270; J2310; J2405; J2543; J3010; J7040; J7042; Q9967; U0003